=== PATIENT | male | born 1955 | race Caucasian/White ===

== ENCOUNTER 2018-11-25 09:00 | Day surgery (SDC) | payer OTHER ==
--- NOTE | 2018-11-18 14:48 | HP ---
PREOPERATIVE HISTORY AND PHYSICAL: DATE OF ADMISSION/SURGERY: 11/25/18 DATE OF OFFICE VISIT/ENCOUNTER: 11/10/18 ATTENDING SURGEON: Judith Tillman MD* (dictated by VIKA Duke). PROCEDURE: Right index and long finger trigger finger releases. HISTORY OF PRESENT ILLNESS: This is a 63-year-old male who complains of pain and triggering in his right index and middle fingers. He has been having trouble with these fingers for approximately 4 months. He denies any numbness or tingling. There was no specific injury. He has had trigger finger releases on the left hand in the past and says that these fingers on the right hand feel the same as the triggers he has had in his left hand before. He did very well with surgical release of those. He is interested in pursuing surgical intervention for his right index and middle finger at this time. PAST MEDICAL HISTORY: 1. Hypertension. 2. GERD. PAST SURGICAL HISTORY: 1. Bilateral carpal tunnel releases. 2. Cholecystectomy. 3. Trigger finger releases left hand. 4. Vasectomy. CURRENT MEDICATIONS: 1. Acetaminophen 500 mg 2 tabs 3 times a day p.r.n. 2. Aleve 220 mg 2 tablets p.r.n. pain. 3. Irbesartan/hydrochlorothiazide 150/12.5 mg daily. 4. Omeprazole 20 mg daily. ALLERGIES: No known drug allergies. FAMILY MEDICAL HISTORY: Diabetes, breast cancer, lung cancer. 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 He is a former smoker. He quit approximately 19 years ago. Prior to that he smoked up to 3 packs per day for 25 years. He denies recreational drug use. He drinks alcohol on rare occasion. REVIEW OF SYSTEMS: Negative for general, cephalic, cardiovascular, respiratory , GI, , other musculoskeletal, integumentary, endocrine, neurologic, and hematologic symptoms. Infectious Disease: Negative for MRSA, hepatitis C, HIV. PHYSICAL EXAMINATION GENERAL: Well-developed, well-nourished 63-year-old male, in no acute distress. VITAL SIGNS: Height 5 feet 4-3/4 inches, weight 179 pounds. Pulse rate 64, blood pressure 140/84. HEENT: Normocephalic, atraumatic. Pupils are equal, round, and reactive to light and accommodation. Extraocular movements are intact. Throat is clear. NECK: Supple. No palpable lymph nodes. PULMONARY: Lungs are clear to auscultation bilaterally. No wheezes, rales, or rhonchi. CARDIOVASCULAR: Regular rate and rhythm. S1, S2. No murmurs, rubs, or gallops. No edema. ABDOMEN: Positive bowel sounds, soft, nontender. NEUROLOGICAL: Alert and oriented x3. Cranial nerves II through XII are intact. Sensation is intact to light touch. MUSCULOSKELETAL: On exam of the right hand, he has tenderness at the A1 kerrie of the index and middle fingers. He can make a fist. He has triggering and clicking of the fingers, but no locking. He has full extension of the fingers. Skin is intact. Neurovascular function is intact. IMPRESSION: Trigger fingers of the right index and middle finger. PLAN: The patient is scheduled to undergo a right index and long finger trigger finger release with Dr. Tillman on 11/25/18. He will return to the office 10 days postop for followup and suture removal. A prescription for Ultracet was e-scribed to the patient's pharmacy for postoperative pain management. VIKA DUKE [id number]/[facility] #: [id number] PATRICE
[~2018-11-25 09:00] MED LIST: Buffered Lidocaine 1% SYRIN* 1 ML/SYRINGE INTRADERM ONE; Lactated Ringers 1000 ML Bag* 1,000 ML IV SCH
[2018-11-25] MEDS ORDERED: Lidocaine 1% INJ* 10 MG/ML 30 ML SDV ONE (11:50)
[2018-11-25] MEDS ORDERED: fentaNYL* 50 MCG/ML 2 ML VIAL (100 MCG VIAL) ONE (11:57)
[2018-11-25] MEDS ORDERED: Midazolam* 1 MG/ML 5 ML VIAL (5 MG) ONE (11:57)
[2018-11-25] MEDS ORDERED: Propofol* 10 MG/ML 20 ML BTL ONE (12:14)
[2018-11-25 12:44] VITALS: BP 134/87
--- NOTE | 2018-11-26 01:18 | OP ---
DATE OF OPERATION: 11/25/18 [facility] DATE OF : 53 SURGEON: Judith Tillman MD [employer] TEACHER: VIKA uDke ANESTHESIA: Local MAC. PRE-OP DIAGNOSIS: Trigger fingers of the right index and long finger. POST-OP DIAGNOSIS: Trigger fingers of the right index and long finger. OPERATIVE PROCEDURE: Right index and long finger trigger release. ESTIMATED BLOOD LOSS: Zero. TOURNIQUET TIME: About 15 minutes. INDICATIONS FOR PROCEDURE: Arash is a 63-year-old man who has trigger fingers of the index and middle fingers. He has had trigger finger releases in the past and declined conservative treatment with cortisone injection. He presents for trigger finger release of the right index and long finger. DESCRIPTION OF PROCEDURE: The patient was brought to the operative room and was given a sedation anesthetic and a local infiltration with 10 cc of 1% plain lidocaine in the palm of the right hand. Skin of his right hand and forearm was prepped and draped in the usual sterile fashion. The hand and forearm were exsanguinated and the tourniquet elevated to 250 mmHg. A transverse incision was made, centered over the A1 pulleys of the index and middle finger. We dissected through the subcutaneous tissue down to the A1 kerrie of both fingers. Both pulleys were incised longitudinally completely releasing the flexor tendons, which were in good condition. The digital neurovascular bundles were retracted by the surgical training specialist, Mirella Rodgers. The wound was irrigated and the skin edges reapproximated with a 4-0 nylon suture. The wound was dressed with Xeroform, 4x4, Webril, and an Willem wrap. The patient tolerated the procedure well and was brought to the recovery room in good condition. [id number]/[facility] #: [id number] HEALTH SYSTEMDinesh
== END 2018-11-25 13:13 | disposition home or self-care (01) ==
LOC: OREAST 09:00
PROVIDERS: ATTEND Orthopaedic Surgery
DX: M65.321 Trigger finger, right index finger (principal); M65.331 Trigger finger, right middle finger; I10 Essential (primary) hypertension; K21.9 Gastro-esophageal reflux disease without esophagitis; Z87.891 Personal history of nicotine dependence
CPT/HCPCS: J2250; J2704; J3010